=== PATIENT | male | born 1965 | race American Indian/Alaskan Native ===

== ENCOUNTER 2016-11-30 08:11 | Emergency (ER) | payer MEDICARE ==
[2016-11-30 09:18] VITALS: BP 140/85
--- NOTE | 2016-11-30 09:34 | Emergency Department Report ---
Chief Complaint: Extremity Injury, Lower Stated Complaint: LEG PAIN Time Seen by Provider: 11/30/16 09:27 - HPI History of Present Illness: Patient here complaining of bilateral leg pain and swelling for 2 weeks. He reports some shortness of breath. Denies any chest pain. He said it's difficult for him to walk. Patient said he was seen at [facility] this morning and was given Lasix then discharged. Patient said he was recently admitted in hospital and stay 3-4 days. Patient has a history of arthritis, asthma, congestive heart failure, hypertension, A. fib and he has internal defibrillator in. Pain to her leg is 4 out of 10 with walking. - ROS Review of Systems: All systems are negative unless stated in HPI above - Exam Vital Signs: Vital Signs 11/30/16 09:15 Temperature 98.2 F Pulse Rate 92 H Respiratory 18 Rate Blood Pressure 140/85 O2 Sat by Pulse 97 Oximetry Physical Exam: General: This is a 51-year-old male well-nourished well developed and nontoxic in appearance. CV: S1, S2. No chest wall tenderness Extremity: Bilateral lower extremities swollen and Taut. No erythema noted. Palpable Pedal pulses. Lungs: scattered Crackles to lung bases. Normal work of breathing MSE screening note: Focused history and physical exam performed. Due to findings the following was ordered:see [facility] ED Medical Decision Making - Medical Decision Making Medical decision making: Patient seen by provider in triage area. Appropriate protocol activated and patient to main ED to be seen by physician. ED Disposition for MSE Condition: Stable
--- NOTE | 2016-11-30 10:08 | XRay Report ---
CHEST 2 VIEWS INDICATION: Shortness of breath. COMPARISON: 10/25/2016 FINDINGS: Frontal and lateral chest radiographs, 3 images, suggest slight improved congestive markings centrally, though minimal fluid or thickening along the right minor fissure remains. Cardiomegaly again seen as also a left AICD with tripolar dual chamber leads. No large pleural effusions or cephalization however. Stable bones. CONCLUSION: Slight radiographic improvement in borderline to mild CHF. Cardiomegaly and left-sided pacemaker again seen. Please correlate. Thank you for the opportunity to participate in this patient's care.
[2016-11-30 12:08] LABS: Basophils % (Auto) 1.1 % (0.0-1.8); Hematocrit 41.6 % (35.5-45.6); Hemoglobin 13.1 gm/dl (11.8-15.2); Mean Corpuscular HGB Conc 32 % (32-34); Mean Corpuscular Hemoglobin 28 pg (28-32); Mean Corpuscular Volume 89 fl (84-94); Platelet Count 234 K/mm3 (140-440); Red Blood Count 4.67 M/mm3 (3.65-5.03); White Blood Count 5.7 K/mm3 (4.5-11.0)
[2016-11-30 12:23] LABS: Anion Gap 15 mmol/L; Blood Urea Nitrogen 28 mg/dL (9-20); Calcium 8.2 mg/dL (8.4-10.2); Carbon Dioxide 31 mmol/L (22-30); Chloride 94.9 mmol/L (98-107); Glucose 87 mg/dL (75-100); Potassium 3.6 mmol/L (3.6-5.0); Sodium 137 mmol/L (137-145)
[2016-11-30 12:42] LABS: Cholesterol 123 mg/dL (50-199); HDL Cholesterol 56 mg/dL (40-59); LDL Cholesterol,Direct 55 mg/dL (50-130); Triglycerides 63 mg/dL (2-149)
[2016-11-30 12:43] LABS: Albumin 2.3 g/dL (3.9-5); Albumin/Globulin Ratio 0.5 %; Bilirubin,Direct 1.2 mg/dL (0-0.2); Bilirubin,Indirect 0.8 mg/dL; Total Protein 7.1 g/dL (6.3-8.2)
--- NOTE | 2016-12-01 12:00 | ED Elopement Review ---
ED Pt Elopement review - Results review Lab results: Laboratory Tests 11/30/16 11/30/16 11/30/16 11:48 11:48 11:48 WBC 5.7 RBC 4.67 Hgb 13.1 Hct 41.6 MCV 89 MCH 28 MCHC 32 RDW 17.0 H Plt Count 234 Lymph % (Auto) 15.5 Bryan % (Auto) 13.7 H Eos % (Auto) 1.0 Baso % (Auto) 1.1 Lymph # 0.9 L Bryan # 0.8 Eos # 0.1 Baso # 0.1 Seg Neutrophils % 68.7 Seg Neutrophils # 3.9 Sodium 137 Potassium 3.6 Chloride 94.9 L Carbon Dioxide 31 H Anion Gap 15 BUN 28 H Creatinine 1.4 Estimated GFR > 60 BUN/Creatinine Ratio 20.00 Glucose 87 Calcium 8.2 L Total Bilirubin 2.0 H Direct Bilirubin 1.2 H Indirect Bilirubin 0.8 AST 52 H ALT 28 Alkaline Phosphatase 87 Total Creatine Kinase 542 H CK-MB (CK-2) 5.0 H CK-MB (CK-2) Rel Index 0.9 Troponin T 0.064 H NT-Pro-B Natriuret Pep 7722 H Total Protein 7.1 Albumin 2.3 L Albumin/Globulin Ratio 0.5 Triglycerides 63 Cholesterol 123 LDL Cholesterol Direct 55 HDL Cholesterol 56 Cholesterol/HDL Ratio 2.19 - Call Back decision Pt Call Back Decision: Call pt to return to ED [facility] (has a positive troponin, elevated BNP, left bundle-branch block with shortness of breath)
== END 2016-11-30 23:46 | disposition left against medical advice (07) ==
LOC: ED 08:11
DX: M79.604 Pain in right leg (principal); M79.605 Pain in left leg; R06.02 Shortness of breath; M79.89 Other specified soft tissue disorders; M19.90 Unspecified osteoarthritis, unspecified site; J45.909 Unspecified asthma, uncomplicated; I50.9 Heart failure, unspecified; I10 Essential (primary) hypertension; Z53.21 Procedure and treatment not carried out due to patient leaving prior to being seen by health care provider
CPT/HCPCS: 36415; 71020; 80048; 80061; 80074; 82550; 82553; 83880; 84484; 85025; 93005; 93010; 93970

== ENCOUNTER 2016-12-12 00:45 | Emergency (ER) | payer MEDICARE ==
[2016-12-12 01:11] VITALS: BP 150/116
[2016-12-12 01:39] LABS: Basophils % (Auto) 1.3 % (0.0-1.8); Eosinophils % (Auto) 1.1 % (0.0-4.3); Hematocrit 41.6 % (35.5-45.6); Hemoglobin 12.9 gm/dl (11.8-15.2); Mean Corpuscular HGB Conc 31 % (32-34); Mean Corpuscular Hemoglobin 28 pg (28-32); Mean Corpuscular Volume 89 fl (84-94); Platelet Count 314 K/mm3 (140-440); Red Blood Count 4.69 M/mm3 (3.65-5.03); Red Cell Distribution Width 18.1 % (13.2-15.2)
[2016-12-12 01:59] LABS: BUN/Creatinine Ratio 23.52; Calcium 8.6 mg/dL (8.4-10.2); Chloride 100.3 mmol/L (98-107); Potassium 4.2 mmol/L (3.6-5.0)
--- NOTE | 2016-12-12 05:34 | Emergency Department Report ---
Addendum entered and electronically signed by ROLO CALDWELL PA 12/12/16 05:49 : Blank Doc - Documentation Documentation: Patient with elevated troponin. Charged nurse notified. Patient came to the window and said he has reports at 9 AM and he has to go to care. Patient said he'll return at [address] I expressed the patient that his labs were normal and with increase in abdominal girth, distended neck pain and swelling to legs he more than likely have exacerbation of his congestive heart failure. I discussed the patient that he could have a heart attack or even if he does not stay to get proper treatment. Patient says he does not care and that he has to go to court because if he doesn't go corneal get arrested. I further informed him that we can give him paperwork to show that he has been in a hospital but he said he would rather take his chances. Patient signed AMA form and left. Original Note: Chief Complaint: Dyspnea/Respdistress Stated Complaint: MIMA Time Seen by Provider: 12/12/16 05:17 - HPI History of Present Illness: This 51-year-old male who is here because he is reporting difficulty breathing. He also reported that his stomach is swollen and his legs are hard and swollen. Denies any coughing or chest pain. Blood pressure is 150/116 and heart rate is 106. Patient has a history of arthritis, congestive heart failure and hyperlipidemia. Denies Nausea vomiting. denies any abdominal pain. Also reported that he has a defibrillator - ROS Review of Systems: All systems are negative unless stated in HPI above - Exam Vital Signs: Vital Signs 12/12/16 12/12/16 01:06 03:00 Temperature 97.6 F Pulse Rate 106 H Respiratory 22 20 Rate Blood Pressure 150/116 O2 Sat by Pulse 92 98 Oximetry Physical Exam: General: This is a 51-year-old male well-nourished well-developed and nontoxic in appearance. CV: Tachycardic at 106, blood pressure is 150/116 and he takes medication. S1, S2 Lungs: Scattered crackles to lung bases. Patient with mild increased work of breathing. Shortness of breath and exertion. Extremity: Swelling to bilateral lower extremity. +2 pedal pulses. Abdomen: Positive distention to abdomen, normal bowel sounds and nontender to palpate. Neck: Positive JVD MSE screening note: Focused history and physical exam performed. Due to findings the following was ordered:see [facility] ED Medical Decision Making - Lab Data Result diagrams: 12/12/16 01:20 12/12/16 01:20 - Medical Decision Making Medical decision making: Patient seen by provider in triage area. Appropriate protocol activated and patient to main ED to be seen by physician. ED Disposition for MSE Condition: Stable
--- NOTE | 2016-12-12 09:24 | XRay Report ---
CHEST XRAY, TWO VIEWS HISTORY: Shortness of breath. FINDINGS: Moderate to severe cardiomegaly appear stable since 11/30/16. Moderate central pulmonary venous congestion is also stable. The lungs are clear. No evidence for pneumonia, CHF or pneumothorax. Three lead pacemaker device remains in adequate position. IMPRESSION: Cardiomegaly and pulmonary venous congestion.
== END 2016-12-12 05:45 | disposition left against medical advice (07) ==
LOC: ED 00:45
DX: R06.00 Dyspnea, unspecified (principal); M19.90 Unspecified osteoarthritis, unspecified site; I50.9 Heart failure, unspecified; E78.5 Hyperlipidemia, unspecified; Z53.21 Procedure and treatment not carried out due to patient leaving prior to being seen by health care provider
CPT/HCPCS: 36415; 71020; 80048; 80061; 83880; 84484; 85025; 93005; 93010